=== PATIENT | female | born 1980 | race Caucasian/White ===

== ENCOUNTER 2017-04-17 17:11 | Emergency (ER) | payer OTHER ==
--- NOTE | 2017-04-17 17:29 | ED ---
General Adult HPI - General Chief complaint: Extremity Injury, Lower Stated complaint: fall, left ankle injury Time Seen by Provider: 04/17/17 17:21 Source: patient, RN notes reviewed Mode of arrival: ambulatory Limitations: no limitations - History of Present Illness Initial comments: 36-year-old female presents to the emergency department with a chief complaint of left ankle pain. She states she slipped on the ice yesterday she continues to have some left ankle pain that goes up to about the mid left pederson. She states that she not her head there is no other injury. She states that she iced it and baby did at home but she continued to have the pain today so she was concerned. There's been no fever chills. Patient denies any other symptoms at this time. Patient denies any recent fever, chills, shortness of breath, chest pain, back pain, abdominal pain, nausea vomiting, numbness or tingling, dysuria or hematuria, constipation or diarrhea, headaches or visual changes, or any other current symptoms. - Related Data Allergies Allergy/AdvReac Type Severity Reaction Status Date / Time lidocaine Allergy Unknown Verified 04/17/17 17:16 Review of Systems ROS Statement: Those systems with pertinent positive or pertinent negative responses have been documented in the HPI. ROS Other: All systems not noted in ROS Statement are negative. Past Medical History Past Medical History: No Reported History History of Any Multi-Drug Resistant Organisms: None Reported Past Surgical History: Section Past Psychological History: No Psychological Hx Reported Smoking Status: Current every day smoker Past Alcohol Use History: None Reported Past Drug Use History: None Reported General Exam - General Exam Comments Initial Comments: General: The patient is awake and alert, in no distress, and does not appear acutely ill. Neck: The neck is supple, there is no tenderness. Cardiovascular: There is a regular rate and rhythm. No murmur, rub or gallop is appreciated. Respiratory: Lungs are clear to auscultation, respirations are non-labored, breath sounds are equal. No wheezes, stridor, rales, or rhonchi. Musculoskeletal: Sensation intact with 2+ pulses of left lower extremity. Full range of motion of left knee and left ankle. Some mid fibular tenderness. No bony tenderness around the left ankle. No ecchymosis no deformity. Neurological: CN II-XII intact, There are no obvious motor or sensory deficits. Coordination appears grossly intact. Speech is normal. Skin: Skin is warm and dry and no rashes or lesions are noted. Psychiatric: Normal mood and affect. Limitations: no limitations Course Vital Signs 04/17/17 17:14 Temperature 97.7 F Pulse Rate 88 Respiratory 20 Rate Blood Pressure 134/74 O2 Sat by Pulse 99 Oximetry Medical Decision Making - Medical Decision Making 36-year-old female presents emergency department with chief complaint of left ankle pain after a fall. At this time patient underwent x-rays. This time x- rays are reviewed and negative. We discussed Motrin Tylenol for pain we discussed ice and elevation. We discussed return parameters and follow-up. Patient stated she understood and she is given plan. All questions have been answered. She'll be discharged. - Radiology Data Radiology results: report reviewed, image reviewed Disposition Clinical Impression: Left ankle sprain Disposition: HOME SELF-CARE Condition: Stable Instructions: Ankle Sprain (ED) Additional Instructions: Please use medication as discussed. Please follow up with family doctor if symptoms have not improved over the next two days. Please return to the emergency room if your symptoms increase or worsen or for any other concerns. Referrals: Darien Huber MD [STAFF PHYSICIAN] - 1-2 days Time of Disposition: 18:38
--- NOTE | 2017-04-17 18:21 | XR ---
PROCEDURE: XR ankle complete LT - 3V DATE AND TIME: 04/17/2017 5:43 PM REFERRING PHYSICIAN: Crystal Hubbard CLINICAL INDICATION: PHH, Pain after injury TECHNIQUE: Department protocol. COMPARISON: None FINDINGS: There is no fracture or malalignment. The soft tissues are unremarkable. IMPRESSION: NO ACUTE PROCESS.
--- NOTE | 2017-04-17 18:24 | XR ---
PROCEDURE: XR tibia fibula LT - 2V DATE AND TIME: 04/17/2017 5:43 PM REFERRING PHYSICIAN: Crystal Hubbard CLINICAL INDICATION: PHH, Pain TECHNIQUE: Department protocol. COMPARISON: None FINDINGS: Imaging obtained from the knee to the ankle. There is no fracture or malalignment. The soft tissues are unremarkable. IMPRESSION: NO ACUTE PROCESS.
[2017-04-17 18:44] VITALS: BP 128/72; PULSE 84; RESP 17; TEMP 97.8
== END 2017-04-17 18:43 | disposition home or self-care (01) ==
LOC: EC 17:11
DX: S93.402A Sprain of unspecified ligament of left ankle, initial encounter (principal); F17.200 Nicotine dependence, unspecified, uncomplicated; Z88.8 Allergy status to other drugs, medicaments and biological substances; W00.0XXA Fall on same level due to ice and snow, initial encounter; Y92.89 Other specified places as the place of occurrence of the external cause
CPT/HCPCS: 99283

== ENCOUNTER 2017-07-10 12:48 | Emergency (ER) | payer OTHER ==
[2017-07-10 12:53] VITALS: BP 138/70; PULSE 75; RESP 16; TEMP 98
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
== END 2017-07-10 13:12 | disposition home or self-care (01) ==
LOC: EC 12:48
DX: K08.89 Other specified disorders of teeth and supporting structures (principal); F17.200 Nicotine dependence, unspecified, uncomplicated; Z91.048 Other nonmedicinal substance allergy status
CPT/HCPCS: 99282

== ENCOUNTER → 2020-02-15 | Outpatient (CLI) | payer OTHER | END | disposition home or self-care (01) | LOC: LABWHC1 10:00 | PROVIDERS: ATTEND Emergency Medicine | DX: Z20.828 Contact with and (suspected) exposure to other viral communicable diseases (principal) | CPT/HCPCS: U0003; C9803 ==

== ENCOUNTER 2020-04-16 16:06 | Emergency (ER) | payer OTHER ==
[2020-04-16 16:17] VITALS: BP 144/89; PULSE 108; RESP 18; TEMP 98.7
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
== END 2020-04-16 18:01 | disposition home or self-care (01) ==
LOC: EC 16:06
DX: S20.219A Contusion of unspecified front wall of thorax, initial encounter (principal); M54.2 Cervicalgia; R45.6 Violent behavior; F17.200 Nicotine dependence, unspecified, uncomplicated; Z88.4 Allergy status to anesthetic agent; Z85.9 Personal history of malignant neoplasm, unspecified; Y09 Assault by unspecified means
CPT/HCPCS: 70450; 72125; 99284